=== PATIENT | male | born 1960 | race Caucasian/White ===

== ENCOUNTER 2018-01-15 12:38 | Day surgery (SDC) | payer OTHER ==
[2018-01-07 10:44] VITALS: BMI 29.0
[2018-01-15] MEDS ORDERED: MIDAZOLAM HCL 2 MG/2 ML SINGLE DOSE VIAL ONE (14:51)
[2018-01-15] MEDS ORDERED: PROPOFOL 20 ML ONE (14:58)
[2018-01-15] MEDS ORDERED: ONDANSETRON 4 MG/2 ML VIAL ONE (15:12)
[2018-01-15] MEDS ORDERED: LIDOCAINE HCL/PF 2% SDV 5ML VIAL ONE (15:16)
[2018-01-15] MEDS ORDERED: BUPIVACAINE HCL/PF 0.25% (2.5MG/ML) 10 ML VIAL IJ ONE (15:37)
[2018-01-15] MEDS ORDERED: LACTATED RINGERS SOLUTION 1,000 ML IV SCH (16:00)
[2018-01-15] MEDS ORDERED: oxyCODONE HCL 5 MG TABLET PO PRN (16:01)
[2018-01-15] MEDS ORDERED: ONDANSETRON 4 MG/2 ML VIAL IVPUSH PRN (16:01)
[2018-01-15 16:07] VITALS: TEMP 98.2
[2018-01-15 17:15] VITALS: BP 146/70; PULSE 80
--- NOTE | 2018-01-15 20:18 | OP ---
DATE OF OPERATION: 01/15/2018 PREOPERATIVE DIAGNOSES: 1. Left carpal tunnel syndrome. 2. Left cubital tunnel syndrome. POSTOPERATIVE DIAGNOSES: 1. Left carpal tunnel syndrome. 2. Left cubital tunnel syndrome. OPERATIVE PROCEDURE: 1. Left carpal tunnel release. 2. Left cubital tunnel release. SURGEON: Kimani Israel MD RUG CLIPPER: Wali Larios PA-C, [facility] ANESTHESIA: General. COMPLICATIONS: None. ESTIMATED BLOOD LOSS: Minimal. INDICATIONS FOR PROCEDURE: The patient is a 57-year-old male with the above findings, indicated for operative treatment. The risks, benefits, and alternatives were discussed with the patient at length. Proper informed consent was obtained. This was also discussed with his sister, who also consented. PROCEDURE: After proper identification of the patient and the corrective operative site, the patient was brought to the operating room and placed supine with all bony prominences well padded. General anesthesia was given by the anesthesiologist. The left upper extremity was prepped and draped in the usual sterile fashion. A well-padded tourniquet was placed with a sterile prep. Esmarch bandage was used to exsanguinate the left upper extremity. Tourniquet inflated to 250 mmHg. A longitudinal incision was made over the proximal aspect of the palm. The incision was taken sharply through the skin and blunt and sharp dissection through the subcutaneous tissue. Palmar fascia was divided longitudinally. Transcarpal ligament along with the distal 4 cm of the antebrachial fascia were divided longitudinally under direct visualization with loupe magnification. This provided complete release of the median nerve of the wrist. This incision was repaired with a 5-0 nylon suture. A second incision was made over the posterior medial aspect of the elbow. The incision was taken sharply through the skin with blunt and sharp dissection of the subcutaneous tissues. Ulnar nerve was found proximally and traced from [id number] direction through the Yates ligament and cubital tunnel. It was completely released from the medial intramuscular septum to the flexor carpi ulnaris insertion. There was significant tightening of the cubital tunnel. Once the release was performed, there was no further compression and there was no subluxation of the nerve. The wound was irrigated and repaired with a 4-0 Vicryl and 4-0 Monocryl suture. Steri-Strips, sterile dressings were placed. The patient was reversed from anesthesia and brought to the recovery room in stable condition. He tolerated the procedure well. Wali Larios, the reading assistant, was present throughout the procedure. The procedure could not be performed without a skilled operative reading assistant. KIMANI ISRAEL M.D. RADHA/[id number]
== END 2018-01-15 17:20 | disposition home or self-care (01) ==
LOC: FASU 12:38
PROVIDERS: ATTEND Orthopaedic Surgery Hand Surgery
PROC: 01N40ZZ Release Ulnar Nerve, Open Approach (ICD-10-PCS; 2018-01-15)
PROC: 01N50ZZ Release Median Nerve, Open Approach (ICD-10-PCS; principal; 2018-01-15 14:54)
DX: G56.02 Carpal tunnel syndrome, left upper limb (principal); G56.22 Lesion of ulnar nerve, left upper limb
CPT/HCPCS: 82962; 94760